=== PATIENT | female | born 1965 | race Caucasian/White ===

== ENCOUNTER 2022-08-26 20:14 | Emergency (ER) | payer BC, SELFPAY ==
[2022-08-26 20:25] VITALS: BP 162/84; PULSE 98; RESP 16; TEMP 36.6; O2SAT 97; BMI 26.6
--- NOTE | 2022-08-26 20:31 | ED.GENADUL1 ---
Documented by User: Precious Dillard 08/26/22 22:03 HPI - General Adult General Chief complaint: Neuro Symptoms/Deficit Stated complaint: Chills, Cold tingling hands Time Seen by Provider: 08/26/22 20:31 Source: patient Mode of arrival: walk-in Limitations: no limitations History of Present Illness HPI narrative: 56 year old female presents to the ED. Reports she was not feeling well this morning. She had an episode of loose stools this evening at work. She then developed chills, N/T to her hands. States she felt anxious at the time. Denies fever, dizziness, congestion, sore throat. Denies CP, SOB, cough. Denies abd pain, N/V, urinary sx. She told the RN she was concerned about Covid-19 due to exposure at work recently. Related Data Home Medications Medication Instructions Recorded Confirmed diphenhydramine HCl 25 mg capsule 25 mg PO .qhs PRN sleep 08/26/22 08/26/22 (Benadryl) Allergies Allergy/AdvReac Type Severity Reaction Status Date / Time Penicillins Allergy Severe Seizure Verified 08/26/22 20:24 amoxicillin Allergy Seizure Verified 08/26/22 20:24 Review of Systems ROS Constitutional Reports: chills and fatigue; Denies: fever Eyes Denies: change in vision Ears, nose, mouth, and throat Denies: throat pain, neck pain or ear pain Cardiovascular Denies: chest pain or lightheadedness Respiratory Denies: shortness of breath or cough Gastrointestinal Reports: diarrhea; Denies: abdominal pain, nausea or vomiting Genitourinary Denies: painful urination, urinary frequency or urinary urgency Musculoskeletal Denies: back pain Integumentary/Breast Denies: rash Neurological Reports: numbness in extremities (N/T to hands); Denies: headache, weakness in extremities, lack of coordination, dizziness, confusion or slurred speech PFSH PFSH Social History Smoking status: Former smoker Exam Constitutional Vital Signs - 24 hr 08/26/22 20:25 08/26/22 21:10 08/26/22 21:10 Temperature 97.8 F Pulse Rate [Monitor] 98 H Respiratory Rate 16 Blood Pressure 159/109 H Blood Pressure [Left Arm] 162/84 H Pulse Oximetry 97 100 Oxygen Delivery Method Room Air Room Air Common normals: no apparent distress and oriented x3 General appearance: cooperative; not in distress, not ill appearing and not diaphoretic Orientation/consciousness: Yes awake HENMT Common normals: normocephalic Face and sinus: face symmetric External ear: external ears normal Mouth: lip normal and tongue normal Eye Common normals: conjunctivae normal and no scleral icterus Neck & C-Spine Common normals: supple Chest Chest: symmetrical chest wall rise Respiratory Common normals: normal respiratory effort and clear to auscultation bilaterally Cardio Common normals: regular rate and regular rhythm GI Common normals: soft to palpation and non-tender Auscultation: normoactive bowel sounds Neuro Common normals: oriented x3 and CN's II-XII intact bilaterally Sensorium/orientation: awake and alert Speech: speech normal Gait (neuro): normal gait Motor exam: strength 5/5 throughout and no pronator drift Course Vital Signs Vital signs: Vital Signs Temperature 97.8 F 08/26/22 20:25 Pulse Rate 98 H 08/26/22 20:25 Respiratory Rate 16 08/26/22 20:25 Blood Pressure 162/84 H 08/26/22 20:25 Pulse Oximetry 97 08/26/22 20:25 Oxygen Delivery Method Room Air 08/26/22 20:25 Temperature 97.8 F 08/26/22 20:25 Pulse Rate 98 H 08/26/22 20:25 Respiratory Rate 16 08/26/22 20:25 Blood Pressure 159/109 H 08/26/22 21:10 Pulse Oximetry 100 08/26/22 21:10 Oxygen Delivery Method Room Air 08/26/22 21:10 Medical Decision Making MDM Narrative Medical decision making narrative: CBC, CMP, urinalysis were unremarkable. Covid-19 test was negative. Chest x-ray was pending. Care was resumed to Dr. Blas. See her dictation for further evaluation and treatment. Lab Data Labs: Lab Results 08/26/22 Range/Units 21:08 WBC 5.8 (4.0-11.0) 10^3/uL RBC 5.01 (4.20-5.40) 10^6/uL Hgb 15.6 (12.0-16.0) g/dL Hct 47.2 (36.0-48.0) % MCV 94.2 (81.0-99.0) fL MCH 31.1 (26.7-34.0) pg MCHC 33.1 (29.9-35.2) g/dL RDW 13.2 (11.0-15.0) % Plt Count 232 (150-450) 10^3/uL MPV 9.9 (9.5-13.5) fL Neut % (Auto) 71.2 (43.0-75.0) % Lymph % (Auto) 19.4 L (20.5-60.0) % [place] % (Auto) 6.5 (1.7-12.0) % Eos % (Auto) 2.1 (0.9-7.0) % Baso % (Auto) 0.5 (0.2-2.0) % Neut # (Auto) 4.2 (1.4-6.5) 10^3/uL Lymph # (Auto) 1.1 L (1.2-3.8) 10^3/uL [place] # (Auto) 0.4 (0.3-0.8) 10^3/uL Eos # (Auto) 0.1 (0.0-0.7) 10^3/uL Baso # (Auto) 0.0 (0.0-0.1) 10^3/uL Abs Immat Gran (auto) 0.02 (0.00-0.03) 10^3/uL Imm/Tot Granulo (auto) 0.3 (0.0-0.5) % Sodium 140 (136-145) mmol/L Potassium 3.5 (3.5-5.1) mmol/L Chloride 105 (98-107) mmol/L Carbon Dioxide 31.3 (21.0-32.0) mmol/L Anion Gap 7.2 BUN 13.0 (7.0-18.0) mg/dL Creatinine 0.84 (0.55-1.02) mg/dL Est GFR ( Amer) >60 (>=60) Est GFR (Non-Af Amer) >60 (>=60) BUN/Creatinine Ratio 15.5 Glucose 95 (74-106) mg/dL Calcium 9.1 (8.5-10.1) mg/dL Magnesium 2.0 (1.8-2.4) mg/dL Total Bilirubin 0.3 (0.2-1.0) mg/dL AST 40 H (15-37) U/L ALT 62 H (14-59) U/L Alkaline Phosphatase 129 H (46-116) U/L Total Protein 7.9 (6.4-8.2) g/dL Albumin 3.9 (3.4-5.0) g/dL Globulin 4.0 g/dL Albumin/Globulin Ratio 1.0 Urine Color Lt. yellow (YELLOW) Urine Clarity Clear (CLEAR) Urine pH 6.5 (5.0-9.0) Ur Specific [place] 1.010 (1.005-1.025) Urine Protein Negative (NEG/TRACE) mg/dL Urine Glucose (UA) Negative (NEGATIVE) mg/dL Urine Ketones Negative (NEGATIVE) mg/dL Urine Occult Blood Negative (NEGATIVE) Urine Nitrite Negative (NEGATIVE) Urine Bilirubin Negative (NEGATIVE) Urine Urobilinogen 0.2 (0.2-1.0) EU/dL Ur Leukocyte Esterase Negative (NEGATIVE) SARS-CoV-2 (PCR) Negative (NEGATIVE) ECG Data Attestation: ?I have reviewed the pertinent ECG results. (EKG was reviewed by the attending physician. It showed sinus rhythm at a rate of 88. ) Prior ECG tracings: not available for review Interpretation: Intervals? [place]? Rate: ? 88 ? P:? 58 IN: ? 118? QRS:? 69 QRSD: ? 84 ? T:? 25 QT: ? 346? QTc:? 392? Interpretive Statements 1100 Sinus rhythm 2210 Short [place] interval [address] depression 9150 ? abnormal ECG? No previous ECG available for comparison Discharge Plan Discharge Chief Complaint: Neuro Symptoms/Deficit Clinical Impression: Diarrhea, Paresthesia of both hands, Elevated LFTs Patient Disposition: Home, Self-Care Time of Disposition Decision: 22:28 Condition: Good Prescriptions / Home Meds: No Action diphenhydramine HCl [Benadryl] 25 mg capsule 25 mg PO .qhs PRN (Reason: sleep) Stand Alone Forms: Portal Instructions Referrals: Physician,Non-Staff, [Primary Care Provider] - 1 week Documented by User: Venus Blas MD 08/26/22 22:29 HPI - General Adult General Chief complaint: Neuro Symptoms/Deficit Stated complaint: Chills, Cold tingling hands Time Seen by Provider: 08/26/22 20:31 Related Data Home Medications Medication Instructions Recorded Confirmed diphenhydramine HCl 25 mg capsule 25 mg PO .qhs PRN sleep 08/26/22 08/26/22 (Benadryl) Allergies Allergy/AdvReac Type Severity Reaction Status Date / Time Penicillins Allergy Severe Seizure Verified 08/26/22 20:24 amoxicillin Allergy Seizure Verified 08/26/22 20:24 PFSH PFSH Social History Smoking status: Former smoker Exam Constitutional Vital Signs - 24 hr 08/26/22 20:25 08/26/22 21:10 08/26/22 21:10 Temperature 97.8 F Pulse Rate [Monitor] 98 H Respiratory Rate 16 Blood Pressure 159/109 H Blood Pressure [Left Arm] 162/84 H Pulse Oximetry 97 100 Oxygen Delivery Method Room Air Room Air Course Vital Signs Vital signs: Vital Signs Temperature 97.8 F 08/26/22 20:25 Pulse Rate 98 H 08/26/22 20:25 Respiratory Rate 16 08/26/22 20:25 Blood Pressure 162/84 H 08/26/22 20:25 Pulse Oximetry 97 08/26/22 20:25 Oxygen Delivery Method Room Air 08/26/22 20:25 Temperature 97.8 F 08/26/22 20:25 Pulse Rate 98 H 08/26/22 20:25 Respiratory Rate 16 08/26/22 20:25 Blood Pressure 159/109 H 08/26/22 21:10 Pulse Oximetry 100 08/26/22 21:10 Oxygen Delivery Method Room Air 08/26/22 21:10 Medical Decision Making MDM Narrative Medical decision making narrative: CBC, CMP, urinalysis were unremarkable With the exception of mild elevation of her liver function tests. Chest x-ray was normal.. Covid-19 test was negative. Chest x-ray was pending. Care was resumed to Dr. Blas. See her dictation for further evaluation and treatment. She was seen and evaluated in conjunction with the physician diploma dental assistant. Please refer to her full H and P. She remains hemodynamically stable in the emergency department. On reevaluation she is feeling better and requests to be discharged home. I explained the results of her labs with her including the mild elevation in her liver function tests. I suggest that she follow up closely with her family physician for further evaluation and treatment. She denies that she is an alcohol user. She has no abdominal pain at this time. The elevation of her LFTs may be related to her diarrheal illness. She is otherwise hemodynamically stable for discharge. Lab Data Labs: Lab Results 08/26/22 Range/Units 21:08 WBC 5.8 (4.0-11.0) 10^3/uL RBC 5.01 (4.20-5.40) 10^6/uL Hgb 15.6 (12.0-16.0) g/dL Hct 47.2 (36.0-48.0) % MCV 94.2 (81.0-99.0) fL MCH 31.1 (26.7-34.0) pg MCHC 33.1 (29.9-35.2) g/dL RDW 13.2 (11.0-15.0) % Plt Count 232 (150-450) 10^3/uL MPV 9.9 (9.5-13.5) fL Neut % (Auto) 71.2 (43.0-75.0) % Lymph % (Auto) 19.4 L (20.5-60.0) % [place] % (Auto) 6.5 (1.7-12.0) % Eos % (Auto) 2.1 (0.9-7.0) % Baso % (Auto) 0.5 (0.2-2.0) % Neut # (Auto) 4.2 (1.4-6.5) 10^3/uL Lymph # (Auto) 1.1 L (1.2-3.8) 10^3/uL [place] # (Auto) 0.4 (0.3-0.8) 10^3/uL Eos # (Auto) 0.1 (0.0-0.7) 10^3/uL Baso # (Auto) 0.0 (0.0-0.1) 10^3/uL Abs Immat Gran (auto) 0.02 (0.00-0.03) 10^3/uL Imm/Tot Granulo (auto) 0.3 (0.0-0.5) % Sodium 140 (136-145) mmol/L Potassium 3.5 (3.5-5.1) mmol/L Chloride 105 (98-107) mmol/L Carbon Dioxide 31.3 (21.0-32.0) mmol/L Anion Gap 7.2 BUN 13.0 (7.0-18.0) mg/dL Creatinine 0.84 (0.55-1.02) mg/dL Est GFR ( Amer) >60 (>=60) Est GFR (Non-Af Amer) >60 (>=60) BUN/Creatinine Ratio 15.5 Glucose 95 (74-106) mg/dL Calcium 9.1 (8.5-10.1) mg/dL Magnesium 2.0 (1.8-2.4) mg/dL Total Bilirubin 0.3 (0.2-1.0) mg/dL AST 40 H (15-37) U/L ALT 62 H (14-59) U/L Alkaline Phosphatase 129 H (46-116) U/L Total Protein 7.9 (6.4-8.2) g/dL Albumin 3.9 (3.4-5.0) g/dL Globulin 4.0 g/dL Albumin/Globulin Ratio 1.0 Urine Color Lt. yellow (YELLOW) Urine Clarity Clear (CLEAR) Urine pH 6.5 (5.0-9.0) Ur Specific [place] 1.010 (1.005-1.025) Urine Protein Negative (NEG/TRACE) mg/dL Urine Glucose (UA) Negative (NEGATIVE) mg/dL Urine Ketones Negative (NEGATIVE) mg/dL Urine Occult Blood Negative (NEGATIVE) Urine Nitrite Negative (NEGATIVE) Urine Bilirubin Negative (NEGATIVE) Urine Urobilinogen 0.2 (0.2-1.0) EU/dL Ur Leukocyte Esterase Negative (NEGATIVE) SARS-CoV-2 (PCR) Negative (NEGATIVE) Discharge Plan Discharge Chief Complaint: Neuro Symptoms/Deficit Clinical Impression: Diarrhea, Paresthesia of both hands, Elevated LFTs Patient Disposition: Home, Self-Care Time of Disposition Decision: 22:28 Condition: Good Prescriptions / Home Meds: No Action diphenhydramine HCl [Benadryl] 25 mg capsule 25 mg PO .qhs PRN (Reason: sleep) Stand Alone Forms: Portal Instructions Referrals: Physician,Non-Staff, MD [Primary Care Provider] - 1 week
--- NOTE | 2022-08-26 20:39 | ECG_ITS ---
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
--- NOTE | 2022-08-26 20:39 | XR_ITS ---
[address] [address] Patient Name: SERGIO SINGH MRN: [id number] date: 1965 Sex: F Assigned Patient Location: ER Current Patient Location: ER Accession/Order Number: [id number] Exam Date: 08/26/2022 21:18 Report Date: 08/26/2022 21:55 At the request of: NYLA VOGEL Procedure: XR chest 1V EXAM: XR chest 1V HISTORY: weakness COMPARISON: None. TECHNIQUE: Single view of the chest FINDINGS: Heart size normal. No focal consolidation, pleural effusion, pulmonary congestion or pneumothorax. IMPRESSION: No acute findings. Electronically authenticated by: RICHARD BLUE Date: 08/26/2022 21:55
[2022-08-26 21:01] VITALS: PULSE 90; RESP 19
[2022-08-26 21:03] VITALS: BP 159/109; PULSE 93; PULSE 96; RESP 22; RESP 30; O2SAT 98
[2022-08-26 21:10] VITALS: BP 159/109; O2SAT 100
[2022-08-26 21:15] LABS: Basophils Percent Auto 0.5 % (0.2-2.0); Eosinophils Absolute Auto 0.1 10^3/uL (0.0-0.7); Eosinophils Percent Auto 2.1 % (0.9-7.0); Hematocrit 47.2 % (36.0-48.0); Hemoglobin 15.6 g/dL (12.0-16.0); Immature Granulocytes Abs Auto 0.02 10^3/uL (0.00-0.03); Immature Granulocytes Pct Auto 0.3 % (0.0-0.5); Lymphocytes Absolute Auto 1.1 10^3/uL (1.2-3.8); Lymphocytes Percent Auto 19.4 % (20.5-60.0); Mean Corpuscular HGB Conc 33.1 g/dL (29.9-35.2); Mean Corpuscular Hemoglobin 31.1 pg (26.7-34.0); Mean Corpuscular Volume 94.2 fL (81.0-99.0); Mean Platelet Volume 9.9 fL (9.5-13.5); Monocytes Absolute Auto 0.4 10^3/uL (0.3-0.8); Monocytes Percent Auto 6.5 % (1.7-12.0); Neutrophils Absolute Auto 4.2 10^3/uL (1.4-6.5); Neutrophils Percent Auto 71.2 % (43.0-75.0); Platelet Count 232 10^3/uL (150-450); Red Blood Count 5.01 10^6/uL (4.20-5.40); Red Cell Distribution Width 13.2 % (11.0-15.0); White Blood Count 5.8 10^3/uL (4.0-11.0)
[2022-08-26 21:16] LABS: Bilirubin Urine NEGATIVE (NEGATIVE); Blood Urine NEGATIVE (NEGATIVE); Clarity Urine CLEAR (CLEAR); Color Urine LT. YELLOW (YELLOW); Glucose Urine UA NEGATIVE (NEGATIVE); Ketones Urine NEGATIVE (NEGATIVE); Leukocyte Esterase Urine NEGATIVE (NEGATIVE); Nitrite Urine NEGATIVE (NEGATIVE); Protein Urine NEGATIVE (NEG/TRACE); Urobilinogen Urine 0.2 EU/dL (0.2-1.0); pH Urine 6.5 (5.0-9.0)
[2022-08-26 21:17] LABS: Urine Microscopic Indicated NO
[2022-08-26 21:30] LABS: SARS-CoV-2 Ag NEGATIVE (NEGATIVE)
[2022-08-26 21:36] LABS: Alanine Aminotransferase 62 U/L (14-59); Albumin Level 3.9 g/dL (3.4-5.0); Alkaline Phosphatase 129 U/L (46-116); Anion Gap 7.2; Aspartate Amino Transferase 40 U/L (15-37); BUN Creatinine Ratio 15.5; Bilirubin Total 0.3 mg/dL (0.2-1.0); Calcium 9.1 mg/dL (8.5-10.1); Carbon Dioxide 31.3 mmol/L (21.0-32.0); Chloride 105 mmol/L (98-107); Estimated GFR (African America >60 (>=60); Estimated GFR (Non-African Ame >60 (>=60); Glucose 95 mg/dL (74-106); Potassium 3.5 mmol/L (3.5-5.1); Sodium 140 mmol/L (136-145); Total Protein 7.9 g/dL (6.4-8.2)
[2022-08-27 14:39] LABS: SARS-CoV-2 NAA NOT DETECTED (NOT DETECTE)
== END 2022-08-26 22:55 | disposition home or self-care (01) ==
PROVIDERS: Nurse Practitioner Family; Emergency Provider Emergency Medicine
DX: R19.7 Diarrhea, unspecified (principal); R20.2 Paresthesia of skin; R79.89 Other specified abnormal findings of blood chemistry; Z87.891 Personal history of nicotine dependence; Z20.822 Contact with and (suspected) exposure to COVID-19
CPT/HCPCS: 36415; 71045; 80053; 81003; 83735; 85025; 87635; 87811; 93005; 99285